=== PATIENT | male | born 1960 | race Caucasian/White ===

== ENCOUNTER 2023-05-21 16:36 | Observation (INO) ==
[2023-05-21 19:08] LABS: ABS Lymphocytes 1.5 10^3/uL (1.0-4.8); ABS Monocytes 0.8 10^3/uL (0.0-1.1); ABS Neutrophils 6.3 10^3/uL (1.5-7.6); Eosinophil % 0.4 %; Hematocrit 40.6 % (38-53); Lymphocyte % 17.2 %; Mean Corpuscular Hemoglobin 30.4 pg (27-33); Mean Corpuscular Hgb Conc 34.4 g/dL (31-36); Mean Corpuscular Volume 88.5 fL (80-97); Mean Platelet Volume 9.2 fL (7.5-11.2); Platelet Count 187 10^3/uL (150-450); Red Blood Count 4.59 10^6/uL (4.06-5.63); Red Cell Distribution Width 14.1 % (12-17); White Blood Count 8.7 10^3/uL (3.6-10.2)
[2023-05-21] MEDS ORDERED: Lorazepam PYXIS KEY PRN (19:25)
[2023-05-21 19:32] LABS: High Sens Troponin Baseline 34 pg/mL (<20)
[2023-05-21] MEDS: Thiamine 100 MG/ML 2 ml VIAL 100 MG, Folic Acid IV 1 MG, Multiple Vitamin IV ADULT 10 M... IV ONE (19:42)
[2023-05-21] MEDS: LORazepam 2 mg VIAL 1 ml IV PUSH ONE (19:43)
[2023-05-21] MEDS: Haloperidol 5 mg/ml SDV IV/IM 5 MG/ML AMP IV SLOW PU ONE (19:46)
[2023-05-21 19:55] LABS: ALT 41 U/L (7-52); AST 88 U/L (13-39); Albumin 5.1 g/dL (3.2-5.2); Albumin/Globulin Ratio 2.2 (1-3); Alcohol, S < 13 mg/dL (<13); Alkaline Phosphatase 57 U/L (35-149); Anion Gap 12 mmol/L (2-16); Blood Urea Nitrogen 20 mg/dL (6-24); CO2 Carbon Dioxide 26 mmol/L (22-32); Chloride 104 mmol/L (101-111); Creatinine, Serum 1.13 mg/dL (0.67-1.17); Globulin 2.3 g/dL (2-4); Glucose 104 mg/dL (70-100); Potassium 3.2 mmol/L (3.5-5.0); Sodium 142 mmol/L (135-145); Total Bilirubin 1.9 mg/dL (0.2-1.0); Total Protein 7.4 g/dL (6.4-8.9)
[2023-05-21 19:57] LABS: Acetaminophen < 15 mcg/mL; Salicylate < 2.50 mg/dL (<30)
[2023-05-21 21:07] LABS: High Sensitivity Troponin 1 Hr 27 pg/mL (<20)
[2023-05-21 22:23] LABS: Urine Appearance Clear; Urine Bilirubin Negative (Negative); Urine Blood 2+ (Negative); Urine Color Yellow; Urine Glucose Negative (Negative); Urine Ketones Trace (Negative); Urine Nitrite Negative (Negative); Urine Protein Trace (Negative); Urine Urobilinogen Negative (Negative)
[2023-05-21 22:31] LABS: Urine Bacteria Absent /HPF (Absent); Urine Red Blood Cell 3+(>10/hpf) /HPF (0-Trace); Urine White Blood Cell 1+(6-10/hpf) /HPF (0-Trace)
[2023-05-21 22:42] LABS: Urine Benzodiazepine Screen None Detected (None Detect); Urine Cannabinoids Screen None Detected (None Detect); Urine Opiates Screen None Detected (None Detect)
[2023-05-21 22:55] LABS: Vitamin B12 235 pg/mL (180-914)
[2023-05-22] MEDS: Midazolam 5 mg/5 ml VIAL 1 mg/ml 5 ml VIAL (5 mg) IV SLOW PU ONE ×2 (00:13→02:49)
[2023-05-22] MEDS: Thiamine 100 MG/ML 2 ml VIAL 500 MG in NS 0.9% 250 ml 250 ML IV ONE (00:43)
[2023-05-22] MEDS: Nicotine GUM 4MG FRUIT FLAVOR PO PRN (03:54)
[2023-05-22 10:16] LABS: C Reactive Protein 1.27 mg/L (<8.01)
[2023-05-22] MEDS ORDERED: Haloperidol 5 mg/ml SDV IV/IM 5 MG/ML AMP IM PRN (14:11)
[2023-05-22] MEDS ORDERED: LORazepam 2 mg VIAL 1 ml IV PUSH PRN (14:11)
[2023-05-22] MEDS: Enoxaparin 40 MG/0.4 ML SYR SUBCUT SCH (16:36)
[2023-05-22] MEDS: Senna TAB 8.6 mg TAB PO SCH (20:10)
[2023-05-23 06:21] LABS: ABS Eosinophils 0.2 10^3/uL (0.0-0.5); ABS Lymphocytes 1.8 10^3/uL (1.0-4.8); ABS Monocytes 0.8 10^3/uL (0.0-1.1); ABS Neutrophils 3.7 10^3/uL (1.5-7.6); Eosinophil % 2.8 %; Hematocrit 37.4 % (38-53); Hemoglobin 12.9 g/dL (13.2-16.3); Lymphocyte % 27.5 %; Mean Corpuscular Hemoglobin 30.4 pg (27-33); Mean Corpuscular Hgb Conc 34.5 g/dL (31-36); Mean Corpuscular Volume 88.2 fL (80-97); Mean Platelet Volume 9.1 fL (7.5-11.2); Nucleated Red Blood Cells % 0.1 %/100WBC (0.0-0.8); Platelet Count 157 10^3/uL (150-450); Red Blood Count 4.24 10^6/uL (4.06-5.63); White Blood Count 6.5 10^3/uL (3.6-10.2)
[2023-05-23 06:39] LABS: Albumin 4.4 g/dL (3.2-5.2); Albumin/Globulin Ratio 2.3 (1-3); Calcium 9.4 mg/dL (8.6-10.3); Creatinine, Serum 0.77 mg/dL (0.67-1.17); Globulin 1.9 g/dL (2-4); Magnesium 1.8 mg/dL (1.9-2.7); Total Bilirubin 1.3 mg/dL (0.2-1.0); Total Protein 6.3 g/dL (6.4-8.9); eGFR CKD-EPI 100.6 (>60)
[2023-05-23 07:53] LABS: HDL Cholesterol 45.3 mg/dL
[2023-05-23] MEDS: Potassium Chlor 20 meq TAB.ER PO ONE ×3 (10:24→18:38)
[2023-05-23] MEDS: Polyethylene Glycol 3350 17 GM PACKET PO SCH (10:25)
[2023-05-24 09:53] VITALS: BP 164/89
== END 2023-05-24 12:00 | disposition home or self-care (01) ==
LOC: ED 16:36 → EDHOLD 05-22 13:55 → INTOOBSV 05-22 13:55 → MED 05-22 15:48 → BSU.ADOL 05-22 17:25 → MED 05-22 17:50
PROVIDERS: ADMIT Internal Medicine; ATTEND Internal Medicine